=== PATIENT | female | born 1995 | race Caucasian/White ===

== ENCOUNTER 2024-04-03 19:54 | Emergency (ER) | payer BC, SELFPAY ==
[2024-04-03 20:00] VITALS: O2SAT 97
[2024-04-03 20:05] VITALS: BP 116/76; PULSE 120; RESP 16; TEMP 36.8; O2SAT 97; BMI 24.9
--- NOTE | 2024-04-03 20:08 | ED_ITS ---
HPI - Abdominal Pain General Time Seen by Provider: 20:08 Date Seen: 04/03/24 Chief Complaint: Abdominal Pain Stated Complaint: abdominal pain Time Seen by Provider: 04/03/24 20:05 Source: patient and RN notes reviewed Mode of arrival: ambulatory Limitations: no limitations History of Present Illness HPI narrative: This 28-year-old female is coming in with progressive right lower quadrant pain throughout the day today. She started having pain this morning. Is gotten worse throughout the day, ibuprofen would help but as soon as it would wear off she would start feeling significant pain even if she was resting. Walking, movement really worsen the pain. She normally would have a bowel movement daily, felt like she could go this morning despite her usual coffee. She has also tried heat. She is felt nausea which she thinks is because of the pain. She did try some soup about an hour ago. She is on oral contraceptives, started her menstrual cycle 2 days ago, this is the anticipated start for her being on oral contraceptives. She has never had any abdominal surgery. Notes no changes in urination. Her dad has had his appendix out, Mom has had an ovarian cyst, there is also family history of endometriosis. Related Data Home Medications ?Medication ?Instructions ?Recorded ?Confirmed norgestimate 0.25 mg-ethinyl 1 tab PO DAILY 04/03/24 04/03/24 estradiol 35 mcg tablet (Evie) sertraline 100 mg tablet 200 mg PO DAILY 04/03/24 04/03/24 Allergies Allergy/AdvReac Type Severity Reaction Status Date / Time latex AdvReac topical Verified 04/03/24 20:08 hives Review of Systems Status of ROS Reports: 6 or more systems reviewed and unremarkable except as noted in History and below [facility] Medical History (Updated 04/03/24 @ 22:08 by Nikky Gleason MD) No significant past medical history Surgical History No significant past surgical history Social History Smoking Status: Never smoker Second hand tobacco smoke exposure: No How often do you have a drink containing alcohol: never AUDIT-C Alcohol total score: 0 Non-prescribed substance use: denies use Exam Const: Vital Signs, click to edit/add: Vital Signs - 24 hr 04/03/24 20:04/03/24 20:17 Temperature 98.3 F 98.3 F Pulse Rate [Pulse Oximeter] 120 H Respiratory Rate 16 Blood Pressure [Ri ght Upper Arm] 116/76 Pulse Oximetry 97 Oxygen Delivery Me thod Room Air This 28-year-old female is alert, interactive, no apparent distress but looks like she is in pain. She is still very pleasant and able to speak in complete sentences. She is using her right hand to hang onto her right lower abdomen. Sclera clear, symmetrical facial function. Lungs clear anteriorly, no tachypnea. CV fast but regular, no murmur, normal S1-S2. Abdomen with distant but present bowel sounds, not significantly distended, she has some mild right upper quadrant pain which generalize is to her right lower quadrant and definite right lower quadrant pain with guarding, would not say there is rebound right now. Do not feel any organomegaly or masses. Documenting provider has reviewed patient's vital signs: yes Course Course ED Course: Reviewed with patient that I suspect appendicitis verses ovarian pathology in her situation. Will proceed with CT imaging with IV contrast. Will get appropriate labs. She is very unlikely to have any as she is on oral contraceptives and having normal menstrual cycle. Will give her Toradol and Zofran for symptom control. Reevaluation(s) Time of Reevaluation #1: 22:02 Reevaluation #1: Have reviewed with patient that there are no CT findings for her acute abdominal pain. She does have an incidental finding of an adrenal adenoma which will require follow-up, she was provided a copy of her CT. This certainly is not cause of her symptoms right now. We discussed bowel cramping that can sometimes mimic underlying processes. She certainly has nothing on CT or labs to direct us to any concerning findings. I have reviewed this with our general surgeon. A period of observation is indicated, will allow her to go home with Toradol from [facility], 20 tablets per instructions as well as the 10 tablets of Zofran from [facility]. Consultations Consultation #1: Reviewed with surgeon Dr. Townsend. She is going to look at the CT, look over the chart and will contact me back. From she agrees that there is no inflammatory change and no visualized appendicitis/inflammatory change. Will have her discharge to home for a period out patient observation. Back to the ER tomorrow for worsening otherwise recheck with her primary on Friday. Time: 21:31 Vital Signs Vital signs: Initial Vital Signs Temperature 98.3 F 04/03/24 20:05 Temperature Source Temporal Artery Scan 04/03/24 20:05 Pulse Rate 120 H 04/03/24 20:05 Respiratory Rate 16 04/03/24 20:05 Blood Pressure 116/76 04/03/24 20:05 Blood Pressure Mean 89 04/03/24 20:05 Blood Pressure Position Sitting 04/03/24 20:05 Pulse Oximetry 97 04/03/24 20:05 Oxygen Delivery Method Room Air 04/03/24 20:05 Vital Signs Temperature 98.3 F 04/03/24 20:05 Pulse Rate 120 H 04/03/24 20:05 Respiratory Rate 16 04/03/24 20:05 Blood Pressure 116/76 04/03/24 20:05 Pulse Oximetry 97 04/03/24 20:05 Oxygen Delivery Method Room Air 04/03/24 20:05 Temperature 98.3 F 04/03/24 20:17 Pulse Rate 120 H 04/03/24 20:05 Respiratory Rate 16 04/03/24 20:05 Blood Pressure 116/76 04/03/24 20:05 Pulse Oximetry 97 04/03/24 20:05 Oxygen Delivery Method Room Air 04/03/24 20:05 Medications Administered Medications: Discontinued Medications Generic Name Dose Route Start Last Admin Trade Name Fretramaine PRN Reason Stop Dose Admin Ketorolac Tromethamine 15 mg 04/03/24 20:13 04/03/24 20:17 Ketorolac 15 Mg/Ml Inj IVP 04/03/24 20:14 15 mg ONCE ONE Administration Ondansetron HCl 4 mg 04/03/24 20:13 04/03/24 20:17 Ondansetron 2 Mg/Ml Inj IVP 04/03/24 20:14 4 mg ONCE ONE Administration MDM - Abdominal Pain Lab Data Attestation: I reviewed the patient's lab results. Labs: Lab Results 04/03/24 04/03/24 Range/Units 08:05 20:12 WBC 9.06 (4.50-11.00) K/uL RBC 5.43 H (4.00-5.20) m/uL Hgb 16.4 H (12.0-16.0) gm/dL Hct 48.0 (33.0-51.0) % MCV 88 (80-100) fL MCH 30 (26-34) pg MCHC 34 (32-36) gm/dL RDW Coeff of Janice 12.5 (11.5-15.5) % Plt Count 243 (140-440) K/uL Neut % (Auto) 87.8 H (42.0-72.0) % Lymph % (Auto) 5.8 L (20-44) % [place] % (Auto) 4.3 (0.0-11.0) % Eos % (Auto) 1.9 (0.0-7.0) % Baso % (Auto) 0.1 (0.0-3.0) % Neut # (Auto) 8.00 H (1.7-7.0) K/uL Lymph # (Auto) 0.50 L (0.90-2.90) K/uL [place] # (Auto) 0.40 (0.00-0.90) K/UL Eos # (Auto) 0.17 (0.00-0.50) K/uL Baso # (Auto) 0.01 (0.00-0.30) K/uL Abs Immat Gran (auto) 0.01 (0.00-0.30) K/uL Imm/Tot Granulo (auto) 0.1 % Sodium 135 (135-149) mmol/L Potassium 4.3 (3.6-5.1) mmol/L Chloride 108 (96-114) mmol/L Carbon Dioxide 17 L (20-32) mmol/L Anion Gap 10 (7-15) mEq/L BUN 16 (5-24) mg/dL Creatinine 0.5 (0.5-1.5) mg/dL Estimated Creat Clear 147.23 Estimated GFR 133 ml/min Glucose 119 H (60-115) mg/dL Lactate 2.1 H (0.5-1.9) mmol/L Calcium 8.8 (8.4-10.6) mg/dL Total Bilirubin 1.3 (0.1-1.5) mg/dL AST 31 (12-35) U/L ALT 28 (4-35) U/L Alkaline Phosphatase 47 (40-150) U/L C-Reactive Protein 1.5 H (0.5-1.0) mg/dL Total Protein 7.4 (6.0-8.3) g/dL Albumin 4.2 (3.3-5.0) g/dL Urine Color Yellow (Yellow) Urine Appearance Clear (Clear) Urine pH 6.0 (5.0-8.5) Ur Specific [place] 1.025 (1.000-1.030) Urine Protein Negative (Negative) Urine Glucose (UA) Negative (Negative) Urine Ketones Negative (Negative) Urine Blood Negative (Negative) Urine Nitrite Negative (Negative) Urine Bilirubin Negative (Negative) Urine Urobilinogen 0.2 (0.2-1.0) Ur Leukocyte Esterase Negative (Negative) Urine RBC 0-2 (0-2) Urine WBC 0-2 (0-5) Ur Squamous Epith Cells Moderate A (None-Few) Urine Bacteria None (None) Imaging Data CT scan - abdomen: Attestation: I have reviewed the pertinent imaging results. Radiologist's impression: Patient: KATERINA NEGRO Facility:?[facility] Patient ID:?[id number] Site Patient ID:?[id number]. Site :?[id number] Study:?CT-Abdomen/Pelvis W ISOVUE 370-04/03/2024 8:46:36 PM Ordering Physician:?Victorino Sher Final Report: INDICATION: Right lower quadrant abdominal pelvic pain TECHNIQUE: CT Abdomen and pelvis with i.v. contrast. Coronal and sagittal reformats were obtained. CONTRAST: 71 mL Isovue 370 COMPARISON: None FINDINGS: Lower chest: Unremarkable. Liver: Unremarkable. Spleen: Unremarkable. Pancreas: Unremarkable. Gallbladder: Unremarkable. Kidney: Unremarkable. No kidney or ureteral stones or obstruction seen. Adrenal: An incidental left adrenal nodule is noted, measuring 2 cm. Bowel: The stomach, small bowel, and colon are unremarkable. The appendix cannot be identified but there are no inflammatory changes noted in the right lower quadrant. Vascular: Unremarkable. Lymph: Unremarkable. Peritoneum: Unremarkable. No pneumoperitoneum is seen. No significant ascites is noted. Pelvis: Unremarkable. Soft tissue: Unremarkable. Bone: Unremarkable for age. IMPRESSIONS: 1. An incidental left adrenal nodule is noted, measuring 2 cm. In accordance with ACR Guidelines, further characterization with outpatient Adrenal CT or MRI is recommended. 2. The appendix cannot be identified but there are no inflammatory changes noted in the right lower quadrant. Clinical follow-up is recommended. REFERENCE: 1. Jannet W, Rohan Martinez et al. Management of Incidental Adrenal Masses: A White Paper of the ACR Incidental Findings Committee. JACR.;1038-44. DOI:[email or web address]://doi.org/[email or web address]/j.[email or web address]. Dictated by Obey Bhakta MD @ 04/03/2024 9:05:55 PM Please note that all CT scans at this facility use dose modulation, iterative reconstruction, and/or weight-based dosing when appropriate to reduce radiation dose to as low as reasonably achievable. Dictated by: Obey Bhakta MD @ 04/03/2024 21:06:02 (Electronic Signature) Discharge Plan Discharge Clinical Impression: Abdominal pain, right lower quadrant Adrenal adenoma Qualifiers: Laterality: left Qualified Code(s): D35.02 - Benign neoplasm of left adrenal gland Patient Disposition: Home, Self-Care Condition: Stable Instructions: Abdominal Pain (ED) Additional Instructions: Can use Toradol and Zofran for symptoms. Can also do Tylenol 1000 mg 3 times a day. If your abdominal pain is worsening, develops vomiting or fever with it, have new concerns with it, return to the ER for re-evaluation. Otherwise should be rechecked on Friday in clinic with your primary care provider even if improved. You do need to have an adrenal adenoma CT or MRI done outpatient in the future to further characterize this. Please take the CT report to your primary care provider when you follow-up. Prescriptions: No Action norgestimate-ethinyl estradiol [Evie] 0.25-35 mg-mcg tablet 1 tab PO DAILY sertraline 100 mg tablet 200 mg PO DAILY Follow Up/Referrals: Felicia Agustin MD [Primary Care Provider] - Stand Alone Forms: InMobi Info Instructions
--- NOTE | 2024-04-03 20:13 | CRLHL7_ITS ---
For Patients: As a result of the Century Cures Act, medical imaging exams and procedure reports are released immediately into your electronic medical record. You may view this report before your referring provider. If you have questions, please contact your health care provider. INDICATION: Right lower quadrant abdominal pelvic pain TECHNIQUE: CT Abdomen and pelvis with i.v. contrast. Coronal and sagittal reformats were obtained. CONTRAST: 71 mL Isovue 370 COMPARISON: None FINDINGS: Lower chest: Unremarkable. Liver: Unremarkable. Spleen: Unremarkable. Pancreas: Unremarkable. Gallbladder: Unremarkable. Kidney: Unremarkable. No kidney or ureteral stones or obstruction seen. Adrenal: An incidental left adrenal nodule is noted, measuring 2 cm. Bowel: The stomach, small bowel, and colon are unremarkable. The appendix cannot be identified but there are no inflammatory changes noted in the right lower quadrant. Vascular: Unremarkable. Lymph: Unremarkable. Peritoneum: Unremarkable. No pneumoperitoneum is seen. No significant ascites is noted. Pelvis: Unremarkable. Soft tissue: Unremarkable. Bone: Unremarkable for age. IMPRESSIONS: 1. An incidental left adrenal nodule is noted, measuring 2 cm. In accordance with ACR Guidelines, further characterization with outpatient Adrenal CT or MRI is recommended. 2. The appendix cannot be identified but there are no inflammatory changes noted in the right lower quadrant. Clinical follow-up is recommended. REFERENCE: 1. Jannet W, Rohan J et al. Management of Incidental Adrenal Masses: A White Paper of the ACR Incidental Findings Committee. JACR.;1038-44. DOI:https://doi.org/[email or web address]/j.[email or web address]. Dictated by Obey Bhakta MD @ 04/03/2024 9:05:55 PM Please note that all CT scans at this facility use dose modulation, iterative reconstruction, and/or weight-based dosing when appropriate to reduce radiation dose to as low as reasonably achievable. Dictated by: Obey Bhakta MD @ 04/03/2024 21:06:02 (Electronically Signed)
[2024-04-03 20:14] LABS: Appearance Urine Clear (Clear); Bilirubin Urine Negative (Negative); Blood Urine Negative (Negative); Color Urine Yellow (Yellow); Glucose Urine Negative (Negative); Ketones Urine Negative (Negative); Leukocyte Esterase Urine Negative (Negative); Nitrite Urine Negative (Negative); Protein Urine Negative (Negative); Specific Gravity Urine 1.025 (1.000-1.030); Urobilinogen Urine 0.2 (0.2-1.0)
[2024-04-03 20:17] VITALS: TEMP 36.8
[2024-04-03 20:17] LABS: Lactate* 2.1 mmol/L (0.5-1.9)
[2024-04-03] MEDS: KETOROLAC 15 MG/ML inj IVP (20:17)
[2024-04-03] MEDS: ONDANSETRON 2 MG/ML inj 4 MG IVP (20:17)
[2024-04-03 20:22] LABS: Basophils Absolute Auto 0.01 K/uL (0.00-0.30); Basophils Percent Auto 0.1 % (0.0-3.0); Eosinophils Absolute Auto 0.17 K/uL (0.00-0.50); Eosinophils Percent Auto 1.9 % (0.0-7.0); Hemoglobin* 16.4 gm/dL (12.0-16.0); Immature Granulocytes Abs Auto 0.01 K/uL (0.00-0.30); Immature Granulocytes Pct Auto 0.1 %; Lymphocytes Percent Auto 5.8 % (20-44); Mean Corpuscular HGB Conc 34 gm/dL (32-36); Mean Corpuscular Hemoglobin 30 pg (26-34); Mean Corpuscular Volume 88 fL (80-100); Monocytes Percent Auto 4.3 % (0.0-11.0); Neutrophils Percent Auto 87.8 % (42.0-72.0); Platelet Count* 243 K/uL (140-440); RDW Coefficient of Variation % 12.5 % (11.5-15.5); Red Blood Count 5.43 m/uL (4.00-5.20); Slide Review Reflex No; White Blood Count* 9.06 K/uL (4.50-11.00)
[2024-04-03 20:23] LABS: RBC Urine 0-2 (0-2); Squamous Epithelial Cell Urine Moderate (None-Few); WBC Urine 0-2 (0-5)
[2024-04-03 20:33] LABS: Albumin* 4.2 g/dL (3.3-5.0); Chloride* 108 mmol/L (96-114)
[2024-04-03 20:34] LABS: Potassium* 4.3 mmol/L (3.6-5.1); Sodium* 135 mmol/L (135-149)
[2024-04-03 20:36] LABS: Alkaline Phosphatase* 47 U/L (40-150); Anion Gap 10 mEq/L (7-15); Aspartate Amino Transferase* 31 U/L (12-35); Bilirubin Total* 1.3 mg/dL (0.1-1.5); Carbon Dioxide* 17 mmol/L (20-32); Creatinine* 0.5 mg/dL (0.5-1.5); Est. Creatinine Clearance* 147.23; Estimated Glomerular Filt Rate 133 ml/min; Total Protein* 7.4 g/dL (6.0-8.3)
[2024-04-03 20:37] LABS: Alanine Aminotransferase* 28 U/L (4-35); Blood Urea Nitrogen* 16 mg/dL (5-24); Calcium* 8.8 mg/dL (8.4-10.6); Glucose* 119 mg/dL (60-115)
[2024-04-03 20:39] LABS: C Reactive Protein* 1.5 mg/dL (0.5-1.0)
[2024-04-03 22:24] VITALS: BP 121/77; PULSE 95; RESP 16; TEMP 36.8; O2SAT 97
[2024-04-03 22:29] VITALS: BP 121/77; PULSE 95; RESP 16; TEMP 36.8
== END 2024-04-03 22:30 | disposition home or self-care (01) ==
PROVIDERS: Emergency Provider Family Medicine; PCP Pediatrics
DX: R10.31 Right lower quadrant pain (principal); D35.02 Benign neoplasm of left adrenal gland
CPT/HCPCS: 36415; 74177; 80053; 81001; 83605; 85025; 86140; 94761; 96374; 96375; 99284; 99285; J1885; J2405; Q9967

== ENCOUNTER 2024-04-04 12:42 | Emergency (ER) | payer BC, SELFPAY ==
[2024-04-04 12:50] VITALS: BP 130/83; PULSE 107; RESP 16; TEMP 36.6; O2SAT 98; BMI 24.9
--- NOTE | 2024-04-04 13:16 | ED.ABDPAIN ---
HPI - Abdominal Pain General Date Seen: 04/04/24 Chief Complaint: Abdominal Pain Stated Complaint: Abdominal pain Time Seen by Provider: 04/04/24 12:49 History of Present Illness HPI narrative: 28-year-old female presenting to the ER today for abdominal pain affecting her lower right quadrant. She is currently on day 3 of her menstrual cycle. She is generally healthy. No previous abdominal surgeries. She started having her period a couple of days ago and it was normal, on time and normal amount of the blood flow. Yesterday she started having pain located low in her right lower quadrant. The pain became intense in waves and made her nauseous. She had a couple of episodes of dry heaves. She came into the ER yesterday was seen. Workup was normal but inconclusive. Labs 04/03/2020 WBC 9.06, hemoglobin 16.4, platelet count 243 Sodium 135, potassium 4.3, chloride 1 awake, bicarb 17, BUN 16, creatinine 0.5, glucose 119, AST 31, ALT 28, alk-phos 47, total bilirubin 1.3 CRP 1.5 Venous lactic 2.1 Urinalysis negative protein, negative nitrite, negative leukocyte esterase, 0-[address] abd pelvis IMPRESSIONS: 1. An incidental left adrenal nodule is noted, measuring 2 cm. In accordance with ACR Guidelines, further characterization with outpatient Adrenal CT or MRI is recommended. 2. The appendix cannot be identified but there are no inflammatory changes noted in the right lower quadrant. Clinical follow-up is recommended. She was discharged home from the ER with return precautions. Last night she had more pain and other episode of nausea the other lead led to vomiting. This time her emesis was greenish. No bloody emesis. No diarrhea. Pain has been persistent throughout the night it comes and goes in waves. When she takes Toradol gets slightly better but she still having waves or he she gets intense pain. The pain is now also spreading and affecting more the right side of her abdomen, not just the right lower quadrant. She does not have a fever. Pain does not really change based on position but it sounds like it does hurt more when she moves. She still having vaginal bleeding but her menstrual cycle is slackenning, as her periods normally do by the 3rd day. Related Data Home Medications ?Medication ?Instructions ?Recorded ?Confirmed norgestimate 0.25 mg-ethinyl 1 tab PO DAILY 04/03/24 04/03/24 estradiol 35 mcg tablet (Evie) sertraline 100 mg tablet 200 mg PO DAILY 04/03/24 04/03/24 Allergies Allergy/AdvReac Type Severity Reaction Status Date / Time latex AdvReac topical Verified 04/03/24 20:08 hives [facility] Medical History (Updated 04/04/24 @ 16:42 by Rambo Saldaña MD) No significant past medical history Surgical History No significant past surgical history Social History Smoking Status: Never smoker Do you use any of these nicotine containing products: None Second hand tobacco smoke exposure: No How often do you have a drink containing alcohol: never AUDIT-C Alcohol total score: 0 Non-prescribed substance use: denies use service: No Exam Const: Vital Signs, click to edit/add: Vital Signs - 24 hr 04/04/24 12:50 04/04/24 14:50 Temperature 97.8 F Pulse Rate [Right Radial] 107 H 90 Respiratory Rate 16 16 Blood Pressure [Ri ght Upper Arm] 130/83 119/70 Pulse Oximetry 98 98 Oxygen Delivery Me thod Room Air Room Air Course Course ED Course: Recheck-says her pain is much better after the Dilaudid. She is much more comfortable. Smiling. Alert, nontoxic. Repeat exam still reveals tenderness now predominantly in the right lower quadrant. No Rovsing sign. No psoas sign. No definite peritoneal signs. Exam is much improved and much less tender after Dilaudid. Reevaluation(s) Reevaluation #1: Recheck-pelvic ultrasound report shows normal uterus and ovaries. No clear explanation for pain. There are some nonspecific dilated loops of bowel noted by ultrasound. White count normal, actually down from 9 to 5. Vital Signs Vital signs: Initial Vital Signs Temperature 97.8 F 04/04/24 12:50 Temperature Source Temporal Artery Scan 04/04/24 12:50 Pulse Rate 107 H 04/04/24 12:50 Respiratory Rate 16 04/04/24 12:50 Blood Pressure 130/83 04/04/24 12:50 Blood Pressure Mean 98 04/04/24 12:50 Pulse Oximetry 98 04/04/24 12:50 Oxygen Delivery Method Room Air 04/04/24 12:50 Vital Signs Temperature 97.8 F 04/04/24 12:50 Pulse Rate 107 H 04/04/24 12:50 Respiratory Rate 16 04/04/24 12:50 Blood Pressure 130/83 04/04/24 12:50 Pulse Oximetry 98 04/04/24 12:50 Oxygen Delivery Method Room Air 04/04/24 12:50 Temperature 97.8 F 04/04/24 12:50 Pulse Rate 90 04/04/24 14:50 Respiratory Rate 16 04/04/24 14:50 Blood Pressure 119/70 04/04/24 14:50 Pulse Oximetry 98 04/04/24 14:50 Oxygen Delivery Method Room Air 04/04/24 14:50 Medications Administered Medications: Generic Name Dose Route Start Last Admin Trade Name Freq PRN Reason Stop Dose Admin Hydromorphone HCl 0.5 mg 04/04/24 13:16 04/04/24 13:35 Hydromorphone 0.5 Mg/0.5 Ml Inj IVP 0.5 mg Q1H PRN Administration Pain Discontinued Medications Generic Name Dose Route Start Last Admin Trade Name Freq PRN Reason Stop Dose Admin Ondansetron HCl 4 mg 04/04/24 13:16 04/04/24 13:34 Ondansetron 2 Mg/Ml Inj IVP 04/04/24 13:17 4 mg ONCE ONE Administration MDM - Abdominal Pain MDM Narrative Medical decision making narrative: Very pleasant 28-year-old female returning to the ER today for abdominal pain. Pain is primary no lower right quadrant but also spreading more diffusely in her abdomen and associated with nausea and vomiting. No fever. She had been here in the ER workup yesterday with a negative but nondiagnostic workup. Specifically CT having pelvis is obtained and did not identify an appendix. With worsening symptoms she came back to the ER today. Initial concern was for possible gynecologic pathology causing her pain given negative workup so far. Urinalysis was obtained and is normal. test negative. Pelvic ultrasound shows no evidence for ovarian cyst, torsion, free pelvic fluid. Laboratory workup today showed improvement her white count down from 9 to 5. She did have significant pain improvement with IV Dilaudid here in the ER but was still uncomfortable and tender in the right lower quadrant. I had a detailed discussion with the patient as well as her family about possible further workup including repeat CT. We discussed the risk of radiation. Ultimately with sided to go ahead with repeat CT. On today's CT scan appendix is visualized and looks normal. No evidence for appendicitis. Also no evidence for diverticulitis, colitis, bowel obstruction. No free fluid. No free air. No perforation or abscess. There is note of a large stool ball in her rectum, possible constipation on the CT. Discussed workup so far with the patient and her family. They were reassured but understandably a little bit frustrated about the absence of a specific diagnosis. At this point no immediate surgical or medical condition requiring hospitalization. Will pursue a plan for watchful waiting at home with follow-up in 24-36 hours if not improving. Return to the ER immediately if worse. [place] and Zofran Instymeds prescriptions provided. Opiate precautions reviewed. Incidentally she has a 2 cm left adrenal lesion which needs outpatient follow-up. Lab Data Labs: Lab Results 04/04/24 04/04/24 Range/Units 13:39 13:40 WBC 5.71 (4.50-11.00) K/uL RBC 5.19 (4.00-5.20) m/uL Hgb 15.7 (12.0-16.0) gm/dL Hct 46.4 (33.0-51.0) % MCV 89 (80-100) fL MCH 30 (26-34) pg MCHC 34 (32-36) gm/dL RDW Coeff of Janice 12.7 (11.5-15.5) % Plt Count 230 (140-440) K/uL Neut % (Auto) 79.0 H (42.0-72.0) % Lymph % (Auto) 11.6 L (20-44) % Wheeler % (Auto) 6.1 (0.0-11.0) % Eos % (Auto) 3.3 (0.0-7.0) % Baso % (Auto) 0.0 (0.0-3.0) % Neut # (Auto) 4.50 (1.7-7.0) K/uL Lymph # (Auto) 0.70 L (0.90-2.90) K/uL Wheeler # (Auto) 0.30 (0.00-0.90) K/UL Eos # (Auto) 0.19 (0.00-0.50) K/uL Baso # (Auto) 0.00 (0.00-0.30) K/uL Abs Immat Gran (auto) 0.00 (0.00-0.30) K/uL Imm/Tot Granulo (auto) 0.0 % Sodium 135 (135-149) mmol/L Potassium 3.7 (3.6-5.1) mmol/L Chloride 107 (96-114) mmol/L Carbon Dioxide 21 (20-32) mmol/L Anion Gap 7 (7-15) mEq/L BUN 15 (5-24) mg/dL Creatinine 0.6 (0.5-1.5) mg/dL Estimated Creat Clear 122.70 Estimated GFR 127 ml/min Glucose 95 (60-115) mg/dL Calcium 8.4 (8.4-10.6) mg/dL Total Bilirubin 0.6 (0.1-1.5) mg/dL AST 31 (12-35) U/L ALT 32 (4-35) U/L Alkaline Phosphatase 52 (40-150) U/L Total Protein 6.5 (6.0-8.3) g/dL Albumin 3.7 (3.3-5.0) g/dL Lipase 30 (23-300) U/L HCG, Qual Negative (Negative) Urine Color Yellow (Yellow) Urine Appearance Clear (Clear) Urine pH 6.0 (5.0-8.5) Ur Specific [place] 1.025 (1.000-1.030) Urine Protein Negative (Negative) Urine Glucose (UA) Negative (Negative) Urine Ketones 1+ A (Negative) Urine Blood Negative (Negative) Urine Nitrite Negative (Negative) Urine Bilirubin Negative (Negative) Urine Urobilinogen 0.2 (0.2-1.0) Ur Leukocyte Esterase Negative (Negative) Urine RBC 0-2 (0-2) Urine WBC 0-2 (0-5) Ur Squamous Epith Cells Moderate A (None-Few) Urine Bacteria Few A (None) Imaging Data US pelvis: Attestation: I have reviewed the pertinent imaging results. Radiologist's impression: FINDINGS: Uterus: 7.2 x 3.1 x 4.6 cm. Normal echotexture of the myometrium. No masses. Endometrium: Transvaginal imaging was performed to better evaluate the endometrium. Endometrial thickness measures 1 mm. Trace fluid and blood products in the endometrial canal. Right ovary 4 x 2.4 x 3 centimeters. Left ovary 2.1 x 1.2 x 1.5 centimeters. No ovarian or adnexal masses. Right ovarian cyst measuring 3.1 x 1.9 x 2.6 centimeters which is within physiologic range. Normal arterial and venous blood flow is demonstrated in both ovaries. Cul-de-sac: No significant free fluid. Mildly prominent, but not definitely dilated bowel loops in the pelvis. IMPRESSION: Uterus with trace fluid and blood products within the endometrial canal, which may be physiologic. Normal endometrial thickness. Normal ovaries. CT scan - abdomen: Attestation: I have reviewed the pertinent imaging results. Radiologist's impression: IMPRESSION: Significant stool in the rectum, consistent with constipation. Redemonstration of the 2 centimeter nodule in the left upper quadrant, which may represent an intermediate density adrenal nodule versus splenule. Again, further characterization with adrenal protocol CT or MR can be considered Discharge Plan Discharge Clinical Impression: Abdominal pain, right lower quadrant Adrenal adenoma Qualifiers: Laterality: left Qualified Code(s): D35.02 - Benign neoplasm of left adrenal gland Patient Disposition: Home, Self-Care Condition: Stable Instructions: Abdominal Pain (ED) Additional Instructions: As we discussed, use the pain and nausea medications as needed to help treat your symptoms. Be careful with [place] because it can cause dizziness, drowsiness, constipation, and can be addictive. [place] is an opiate. Please return to the ER right away if you have worsening or uncontrolled pain, new symptoms such as fever, bloody vomiting or stool, or any problems. If you are not substantially improved within 24-36 hours, please recheck with your doctor or come back to the ER for a recheck. Even if you get better, please arrange a recheck appointment with her doctor within the next 1-2 weeks so that they can arrange a MRI scan for your left adrenal gland. Prescriptions: No Action norgestimate-ethinyl estradiol [Evie] 0.25-35 mg-mcg tablet 1 tab PO DAILY sertraline 100 mg tablet 200 mg PO DAILY Follow Up/Referrals: Felicia Agustin MD [Staff Physician] - Stand Alone Forms: [employer] Info Instructions
--- NOTE | 2024-04-04 13:26 | CRLHL7_ITS ---
For Patients: As a result of the Century Cures Act, medical imaging exams and procedure reports are released immediately into your electronic medical record. You may view this report before your referring provider. If you have questions, please contact your health care provider. INDICATION: Right lower quadrant and pelvic pain TECHNIQUE: Ultrasound pelvis transabdominal and transvaginal for better assessment or to better visualize the endometrium. Real-time sonographic images with spectral and color Doppler imaging of the ovaries were obtained. COMPARISON: CT abdomen and pelvis 04/03/2024 FINDINGS: Uterus: 7.2 x 3.1 x 4.6 cm. Normal echotexture of the myometrium. No masses. Endometrium: Transvaginal imaging was performed to better evaluate the endometrium. Endometrial thickness measures 1 mm. Trace fluid and blood products in the endometrial canal. Right ovary 4 x 2.4 x 3 centimeters. Left ovary 2.1 x 1.2 x 1.5 centimeters. No ovarian or adnexal masses. Right ovarian cyst measuring 3.1 x 1.9 x 2.6 centimeters which is within physiologic range. Normal arterial and venous blood flow is demonstrated in both ovaries. Cul-de-sac: No significant free fluid. Mildly prominent, but not definitely dilated bowel loops in the pelvis. IMPRESSION: Uterus with trace fluid and blood products within the endometrial canal, which may be physiologic. Normal endometrial thickness. Normal ovaries. Dictated by Natalie Fajardo MD @ 04/04/2024 2:48:12 PM (Electronically Signed)
[2024-04-04] MEDS: ONDANSETRON 2 MG/ML inj 4 MG IVP (13:34)
[2024-04-04] MEDS: HYDROmorphone 0.5 mg/0.5 ml inj IVP (13:35)
[2024-04-04 13:45] LABS: Eosinophils Absolute Auto 0.19 K/uL (0.00-0.50); Eosinophils Percent Auto 3.3 % (0.0-7.0); Hematocrit 46.4 % (33.0-51.0); Hemoglobin* 15.7 gm/dL (12.0-16.0); Lymphocytes Percent Auto 11.6 % (20-44); Mean Corpuscular HGB Conc 34 gm/dL (32-36); Mean Corpuscular Hemoglobin 30 pg (26-34); Mean Corpuscular Volume 89 fL (80-100); Monocytes Percent Auto 6.1 % (0.0-11.0); Platelet Count* 230 K/uL (140-440); RDW Coefficient of Variation % 12.7 % (11.5-15.5); Red Blood Count 5.19 m/uL (4.00-5.20); White Blood Count* 5.71 K/uL (4.50-11.00)
[2024-04-04 13:46] LABS: Appearance Urine Clear (Clear); Bilirubin Urine Negative (Negative); Blood Urine Negative (Negative); Color Urine Yellow (Yellow); Glucose Urine Negative (Negative); Ketones Urine 1+ (Negative); Leukocyte Esterase Urine Negative (Negative); Nitrite Urine Negative (Negative); Protein Urine Negative (Negative); Specific Gravity Urine 1.025 (1.000-1.030); Urobilinogen Urine 0.2 (0.2-1.0)
[2024-04-04 14:04] LABS: Albumin* 3.7 g/dL (3.3-5.0); Chloride* 107 mmol/L (96-114)
[2024-04-04 14:05] LABS: Potassium* 3.7 mmol/L (3.6-5.1); Sodium* 135 mmol/L (135-149)
[2024-04-04 14:07] LABS: Anion Gap 7 mEq/L (7-15); Aspartate Amino Transferase* 31 U/L (12-35); Bilirubin Total* 0.6 mg/dL (0.1-1.5); Blood Urea Nitrogen* 15 mg/dL (5-24); Carbon Dioxide* 21 mmol/L (20-32); Creatinine* 0.6 mg/dL (0.5-1.5); Estimated Glomerular Filt Rate 127 ml/min; Total Protein* 6.5 g/dL (6.0-8.3)
[2024-04-04 14:08] LABS: Alanine Aminotransferase* 32 U/L (4-35); Alkaline Phosphatase* 52 U/L (40-150); Calcium* 8.4 mg/dL (8.4-10.6); Glucose* 95 mg/dL (60-115); Lipase* 30 U/L (23-300)
[2024-04-04 14:28] LABS: Slide Review Reflex No
[2024-04-04 14:29] LABS: Bacteria Urine Few; RBC Urine 0-2 (0-2); Squamous Epithelial Cell Urine Moderate (None-Few); WBC Urine 0-2 (0-5)
[2024-04-04 14:50] VITALS: BP 119/70; PULSE 90; RESP 16; O2SAT 98
--- NOTE | 2024-04-04 15:02 | CRLHL7_ITS ---
For Patients: As a result of the Century Cures Act, medical imaging exams and procedure reports are released immediately into your electronic medical record. You may view this report before your referring provider. If you have questions, please contact your health care provider. INDICATION: Right lower quadrant pain, vomiting. TECHNIQUE: CT abdomen and pelvis without contrast. COMPARISON: CT abdomen pelvis 04/03/2024, same-day pelvic ultrasound. FINDINGS: Lower chest: Unremarkable. Liver: Unremarkable. Gallbladder and bile ducts: Vicarious excretion of contrast in the gallbladder. No biliary ductal dilation. Pancreas: Unremarkable. Spleen: Unremarkable. Adrenal glands: The previously noted 2 centimeter left adrenal nodule is intermediate in density (2/31), but is similar in density when compared to the spleen and may represent a splenule. Kidneys: Unremarkable. GI tract: No obstruction or evidence bowel wall inflammation. Significant stool in the rectum with rectal stool ball measuring 6 centimeters. Normal appendix. Vasculature: Abdominal aorta is normal in caliber. Lymph nodes: No lymphadenopathy. Peritoneum/Abdominal Wall: Unremarkable. Pelvis: Unremarkable. No pelvic masses. Bones: Unremarkable for age. IMPRESSION: Significant stool in the rectum, consistent with constipation. Redemonstration of the 2 centimeter nodule in the left upper quadrant, which may represent an intermediate density adrenal nodule versus splenule. Again, further characterization with adrenal protocol CT or MR can be considered. Please note that all CT scans at this facility use dose modulation, iterative reconstruction, and/or weight-based dosing when appropriate to reduce radiation dose to as low as reasonably achievable. Dictated by Natalie Fajardo MD @ 04/04/2024 4:18:01 PM (Electronically Signed)
[2024-04-04 15:05] LABS: HCG Qualitative Serum* Negative (Negative)
== END 2024-04-04 16:54 | disposition home or self-care (01) ==
PROVIDERS: Emergency Provider Emergency Medicine
DX: D35.02 Benign neoplasm of left adrenal gland (principal)
CPT/HCPCS: 36415; 74176; 76830; 80053; 81001; 83690; 84703; 85025; 87086; 93976; 96374; 96375; 99283; 99284; J1171; J2405

== ENCOUNTER 2024-10-09 20:01 | Emergency (ER) | payer OTHER, BC, SELFPAY ==
--- OUTSIDE RECORDS SUMMARY | 2024-10-09 20:02 | XMS_ITS | Encounter Summary ---
Author Organization [facility] Address [address] [place] [id number] Care Team Providers Care Sales Management Intern Name Role Phone Leo Joyce MD Unavailable [phone] Giuliano Rajan APRN TITLE I ASSISTANT Unavailable [phone] [facility] Primary Care Provider Hans Davila MD Unavailable Servando Brandt DO Unavailable [phone] Jarek Landin OD Unavailable [phone] Reason for Visit * Reason Onset Date Comments Refill Request 04/08/2024 Encounter Details Date Type Department Care Team (Late st Contact Info) Description 04/08/[address] 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 Mental Health & Addiction [address] [phone] Sharmaine Fiore NP [address] [address] documented as of this encounter Visit Diagnoses Not on filedocumented in this encounter Additional Health Concerns Assessment Noted Time PHQ-9 Depression Total Score: 14 023 12:03 PM CDT documented as of this encounter Care Teams Sales Management Intern Relationship Specialty Start Date End Date Leo Joyce MD PCP - Ophthalmology 09/08/06 [facility] Hinton MD [address] [place] [id number] PCP - General 07/09/17 Giuliano Rajan APRN TITLE I ASSISTANT Nurse Practitioner Nurse Practitioner 04/01/17 Hans Davila MD [address] [place] [address] Assigned OBGYN Provider 03/12/20 Servando Brandt DO [address] [place] [address] Assigned PCP 08/22/21 Jarek Landin OD [address] [place] [address] Assigned Surgical Provider 07/04/23 documented as of this encounter
--- OUTSIDE RECORDS SUMMARY | 2024-10-09 20:02 | XMS_ITS | Clinical Summary ---
Author Organization [facility] Address [address] [place] [address] Care Team Providers Care Tattoo Artist Name Role Phone Leo Joyce MD Unavailable [phone] Giuliano Rajan APRN DISTILLATION OPERATOR Unavailable [phone] [facility] Primary Care Provider Hans Davila MD Unavailable Servando Brandt DO Unavailable [phone] Jarek Landin OD Unavailable [phone] Allergies Active Allergy Reactions Criticality Noted Date Comments Bacitracin 09/05/2006 Topical bacitracin give rash per mother Dogs 08/21/2009 Latex 08/21/2009 Latex Rash Low 08/25/2012 Maple Tree 08/21/2009 Molds & Smuts 06/25/2007 Medications ASTELIN NA one spray twice daily 03/19/20 07 Active ZYRTEC OR Take by mouth daily as needed Active olopatadine (PATANOL) 0.1 % ophthalmic solutionIndication s:Allergic conjunctivitis Place 1 drop into both eyes 2 times daily. 10 mL 3 11/12/19 12 Active Additional Information Patient not taking.Reported on 07/27/2024 sodium chloride 0.9%, bottle, 0.9 % irrigation IRRIGATE 20ML BY NASAL ROUTE (BOTH NOSTRILS) 4 TIMES PER DAY 07/16/19 23 Active rizatriptan (MAXALT-AUTOMOBILE RENTAL REPRESENTATIVE) 5 MG ODTIndications:Gary foley without aura and without status migrainosus, not intractable Take 1-2 tablets (5-10 mg) by mouth at onset of headache for migraine (may repeat in 2 hours as needed. Max 30 mg in 24 hours) 18 tablet 6 07/23/19 23 Active Additional Information Patient not taking.Reported on 07/27/2024 ondansetron (ZOFRAN ODT) 4 MG ODT tabIndications:Gary foley without aura and without status migrainosus, not intractable Take 1 tablet (4 mg) by mouth every 8 hours as needed for nausea 20 tablet 3 07/23/19 23 Active Additional Information Patient not taking.Reported on 07/27/2024 norgestimate-ethin yl estradiol (MARIO) 0.25-35 MG-MCG tabletIndications: Breakthrough bleeding on OCPs Take 1 tablet by mouth daily 84 tablet 3 09/09/19 24 Active gabapentin (NEURONTIN) 300 MG capsuleIndications :RODRICK (generalized anxiety disorder) Take 1 capsule (300 mg) by mouth nightly as needed (anxiety) 90 capsule 1 09/16/19 24 Active sertraline (ZOLOFT) 100 MG tabletIndications: RODRICK (generalized anxiety disorder) TAKE TWO TABLETS (200mg) BY MOUTH EVERY DAY 180 tablet 1 09/16/19 24 Active sertraline (ZOLOFT) 100 MG tabletIndications: RODRICK (generalized anxiety disorder) TAKE 2 TABLETS BY MOUTH ONCE DAILY 180 tablet 1 04/09/20 24 Active norgestimate-ethin yl estradiol (MARIO) 0.25-35 MG-MCG tabletIndications: Encounter for gynecological examination without abnormal finding Take 1 tablet by mouth daily. 84 tablet 3 07/28/19 25 Active gabapentin (NEURONTIN) 300 MG capsuleIndications :RODRICK (generalized anxiety disorder) Take 1 capsule (300 mg) by mouth 2 times daily. 90 capsule 3 07/28/19 25 Active sertraline (ZOLOFT) 100 MG tabletIndications: RODRICK (generalized anxiety disorder) Take 2 tablets (200 mg) by mouth daily. 180 tablet 1 07/28/19 25 Active Active Problems Problem Noted Date Diagnosed Date Performance anxiety 07/24/2017 RODRICK (generalized anxiety disorder) 07/24/2017 Major depressive disorder with single episode 07/22/2022 Overview (07/22/2022): Major depressive disorder, single episode, unspecified Recurrent sinus infections 04/05/201307/22 Encounters Date Type Department Care Team Description 10/05/2024 MyC Medical Advice [facility] [address] [facility] [address] [place] [address] Hans Davila MD 08/17/2024 Telephone [facility] [place] [id number] [place] [phone] Linda Humphrey MD Appointment (Sooner appointment ) 07/27/2024 1:30 PM CDT Office Visit [facility] [address] [facility] [address] [place] [address] Hans Davila MD Encounter for gynecological examination without abnormal finding; RODRICK (generalized anxiety disorder) 07/27/2024 Travel 07/26/2024 Travel from Last 3 Months Immunizations Immunization Administration Dates Next Due COVID-19 MONOVALENT 12+ (Pfizer) 08/10/2020,0404/2020 DTAP (<7y) 05/28/2002, 9,1997,08/12,1997 [id number] Novel Flu 03/21/2009 HIB (PRP-T) 07/12/1998, 8,1997,06/17 HIB(PRP-OMP)(PedvaxHIB) 1997,1997, HPV Quadrivalent 02/14/2010,10/30/2009, 0 HepB, Unspecified 1997,1997 Hepatitis A (Vaqta/Havrix)(P eds 12m-18y) 12/31/2006,06/23/2006 Hepatitis B, Peds (Engerix-B/Recombivax HB) 1997 Influenza (IIV3) PF 12/21/2010 Influenza Vaccine >6 months,quad, PF ,03/10/2020,01/25/2019,12/26,02/10/2017 MMR (MMRII) 05/28/2002,07/12/1998 Meningococcal ACWY (Menactra ) 08/08/2009 Meningococcal ACWY (Menveo ) 11/04/2014 OPV, trivalent, live 07/12/1998 Poliovirus, inactivated (IPV) 05/28/2002 ,07/12/1998,1997,08/12,1997 Rabies Vaccine 11/20/2007, 8,10/28/2007,10/23,10/21/2007 Rabies-Intradermal 10/28/2007,10/21/2007 TDAP Vaccine (Adacel) 10/07/2017,10/21/2007,08/2006 Varicella (Varivax) 10/21/2007,01/12/1999 Family History Medical History Relation Comments Endometriosis Maternal Aunt Cardiovascular Maternal Grandfather HTN Eye Disorder Maternal Grandfather mac degen Cardiovascular Maternal Grandmother HTN Eye Disorder Maternal Grandmother mac degen Glaucoma Maternal Grandmother Macular Degeneration Maternal Grandmother Family History Negative Mother Cardiovascular Paternal Grandfather heart Relation Status Comments Father Alive Maternal Aunt Maternal Grandfather Alive Maternal Grandmother Other Mother Alive Paternal Grandfather Paternal Grandmother Alive Social History Tobacco Use Types Packs/Day Years Used Date Smoking Tobacco: Never Smokeless Tobacco: Never Tobacco Cessation:Counseling Given: Not Answered Alcohol Use Standard Drinks/Week Comments Yes 0 (1 standard drink = 0.6 oz pur e alcohol) one glass a week PHQ-2 Answer Date Recorded PHQ-2 Score 3 07/27/2024 Adolescent Education Answer Date Record ed Getting School Help Needed Not on file 01/10 Comments No Sex and Gender Information Value Date Recorded Sex Assigned at Female 02/15/2021 10:05 AM CDT Legal Sex Female 4:22 AM SAFETY TRAINER Gender Identity Female 02/15/2021 10:05 AM CDT Sexual Orientation Straight 02/15/2021 10 :05 AM CDT Last Filed Vital Signs Vital Sign Reading Time Taken Comments Blood Pressure 124/60 07/27/2024 1:14 PM CDT Pulse 82 07/22/2022 1:33 PM CDT Temperature 36.7 C (98 F) 12/23/2008 6:56 PM CDT Respiratory Rate 16 07/22/2022 1:33 PM CDT Oxygen Saturation 96% 07/22/2022 1:33 PM CDT Inhaled Oxygen Concentration - - Weight 65.3 kg (144 lb) 07/27/2024 1:14 PM CDT Height 162.6 cm (5' 4) 07/27/2024 1:14 PM CDT Body Mass Index 24.72 07/27/2024 1:14 PM CDT Plan of Treatment Upcoming Encounters Date Type Department Care Team (Late st Contact Info) Description 10/19/2024 3:30 PM CDT Virtual Visit [address] [phone] Hans Davila MD [address] [place] [address] [place] Humph[place] [id number] [place] [address] 11/04/2024 3:00 PM CDT Office Visit [facility] Mental Health & Addiction [address] [phone] Sharmaine Fiore NP [address] [address] Health Maintenance Due Date Last Done Comments ADVANCE CARE PLANNING 1997 ANNUAL REVIEW OF HM ORDERS 1997 DEPRESSION ACTION PLAN 1997 HIV SCREENING 2012 HEPATITIS C SCREENING 2015 COVID-19 VACCINE ( season) 2023 02/25/2022, 04/02/2021, 08/10/2020, Additional history exists INFLUENZA VACCINE (Season Ended) 2024 02/25/2022, 02/01/2021, 03/10/2020, Additional history exists PHQ-9 01/26/2025 07/27/2024, 08/19, 07/26/2021, Additional history exists YEARLY PREVENTIVE VISIT 07/27/2025 07/28/19, 09/09/2023, 08/28/2022, Additional history exists PAP 09/08/2026 09/09/2023, 03/10/2020 DTAP/TDAP/TD VACCINE (8 - Td or Tdap) 10/08/2027 10/07/2017, 10/21/2007, 06/23/2006, Additional history exists ZOSTER VACCINE (1 of 2) 2047 HEPATITIS B VACCINE Completed 1997, 1997, 1997 HPV VACCINE Completed 02/14/2010, 10/19, 08/08/2009 MENINGITIS VACCINE Completed 11/04/2014, 08/08/2009 CHLAMYDIA SCREENING Discontinued 08/28/2021, PNEUMOCOCCAL VACCINE: PEDIATRICS (0 to 5 YEARS) AND AT-RISK PATIENTS (6 to 49 YEARS) Aged Out No longer eligible based on patient's age to complete this topic Procedures Procedure Name Priority Date/Time Associated Diagnosis Comments GYNECOLOGIC CYTOLOGY Routine 09/09/2023 3:22 PM CDT Screening for malignant neoplasm of cervix CHLAMYDIA TRACHOMATIS PCR Routine 08/28/2021 2:00 PM CDT Encounter for gynecological examination without abnormal finding from Last 3 Months or Most Recently Relevant to Health Maintenance Results * Pap Screen Reflex to HPV if ASCUS - Recommended Age 25 - 29 Years (09/09/2023 3:22 PM CDT) Interpretation Negative for Intraepithelial Lesion or Malignancy (NILM) 09/12/2023 11:08 AM CDT [facility] at 1108 CDT Comment Papanicolaou Test Limitations: Cervical cytology is a screening test with limited sensitivity, and regular screening is critical for cancer prevention. Pap tests are primarily effective for the diagnosis/prevent ion of squamous cell carcinoma, not adenocarcinoma or other cancers. 09/12/2023 11:08 AM CDT [facility] Specimen Adequacy Satisfactory for evaluation, endocervical/corley sformation zone component present 09/12/2023 11:08 AM CDT [facility] Clinical Information none 09/12/2023 11:08 AM CDT [facility] LMP/Menopause Date 08/13/2023 09/12/2023 11:08 AM CDT [facility] Reflex Testing Yes if ASCUS 09/12/19 11:08 AM CDT [facility] Previous Abnormal? No 09/12/2023 11:08 AM CDT [facility] Performing Labs The technical component of this testing was completed at [facility]. Stain controls for all stains resulted within this report have been reviewed and show appropriate reactivity. 09/12/2023 11:08 AM CDT [facility] Brushing ENDOCERVICAL STRUCTURE / Unknown Non-blood Collection / Unknown 09/09/2023 3:22 PM CDT 09/09/2023 4:00 PM CDT Hans Davila MD LAB - BEAKER AP Final Result [facility] Specialty Lab [address] [facility] [place] [address], [facility] * CHLAMYDIA TRACHOMATIS PCR (08/28/2021 2:00 PM CDT) Chlamydia trachomatis Negative Negative 08/29/2021 1:39 PM CDT [facility] Comment:A negative result by outside sales representative mediated amplification does not preclude the presence of C. trachomatis infection because results are dependent on proper and adequate collection, absence of inhibitors and sufficient rRNA to be detected. Swab CERVIX UTERI STRUCTURE / Unknown Non-blood Collection / Unknown 08/28/2021 2:00 PM CDT 08/28/2021 2:15 PM CDT Hans Davila MD LAB - MICRO GENERAL OR DERABLES Final Result [facility] Inf. Diseases Diag. Lab [address] [facility] [place] [address], [facility] [phone] from Last 3 Months or Most Recently Relevant to Health Maintenance Insurance BCBS OUT OF STATE BCBS OUT OF STATE BCBS OUT OF STATE Care Teams Tattoo Artist Relationship Specialty Start Date End Date Leo Joyce MD PCP - Ophthalmology 09/08/06 [facility] [address] [place] [address] PCP - General 07/09/17 Giuliano Rajan, TELEMARKETING SUPERVISOR DISTILLATION OPERATOR Nurse Practitioner Nurse Practitioner 04/01/17 Hans Davila MD [address] [place] [address] Assigned OBGYN Provider 03/12/20 Servando Brandt DO [address] [place] [address] Assigned PCP 08/22/21 Jarek Landin OD [address] [place] [address] Assigned Surgical Provider 07/04/23
--- OUTSIDE RECORDS SUMMARY | 2024-10-09 20:02 | XMS_ITS | Clinical Summary ---
Author Organization [facility] Address [address] [place] [address] Care Team Providers Care Cheese Supervisor Name Role Phone No Primary/Referring, Phy Primary Care Provider Unavailable Source Comments You are receiving this document as you are listed as the primary care provider,follow-up provider, or the patient has been referred to you for consultation.This is in compliance with the Medicare and[facility] EHR Incentive Program,which states Providers who transition their patient to another setting of careor provider of care or refers their patient to another provider of care shouldprovide summary care record for each transition of care or referral. [facility] Allergies No known active allergies Medications DULoxetine (CYMBALTA) 60 MG capsule Take 60 mg by mouth daily. Active Active Problems No known active problems Social History Tobacco Use Types Packs/Day Years Used Date Smoking Tobacco: Never Assessed Comments Unknown Sex and Gender Information Value Date Recorded Sex Assigned at Not on file Legal Sex Female 7:38 PM CDT Gender Identity Not on file Sexual Orientation Not on file Last Filed Vital Signs Vital Sign Reading Time Taken Comments Blood Pressure 98/67 08/24/2016 10:40 AM CDT Pulse 114 08/24/2016 10:40 AM CDT Temperature 37.3 C (99.1 F) 08/24/2016 10:40 AM CDT Respiratory Rate 14 08/24/2016 10:40 AM CDT Oxygen Saturation 98% 08/24/2016 10:40 AM CDT Inhaled Oxygen Concentration - - Weight 63.5 kg (140 lb) 08/24/2016 10:40 AM CDT Height - - Body Mass Index - - Plan of Treatment Health Maintenance Due Date Last Done Comments Cervical Cancer Screening Due 1997 Hep C Screening (Preventive Services) 1997 HIV Screening (Preventive Services) 2013 Adult Preventive Visit 2015 DTaP/Tdap/Td Vaccine (1 - Tdap) 2016 HepB Vaccine (1) 2016 COVID-19 Vaccine (1 - 2023-2 5 season) 2023 Influenza Vaccine (Season Ended) 2024 Zoster/Shingles Vaccine (1 of 2) 2047 HPV Vaccine Aged Out No longer eligi ble based on patient's age to complete this topic HepA Vaccine Aged Out No longer eligi ble based on patient's age to complete this topic Hib Vaccine Aged Out No longer eligi ble based on patient's age to complete this topic IPV (Polio) Vaccine Aged Out No longe r eligible based on patient's age to complete this topic MCV4 Vaccine Aged Out No longer eligi ble based on patient's age to complete this topic Meningococcal B Vaccine Aged Out No l onger eligible based on patient's age to complete this topic Pneumococcal Vaccine Aged Out No long er eligible based on patient's age to complete this topic Insurance [facility] Care Teams Cheese Supervisor Relationship Specialty Start Date End Date No Primary/Referring, Phy PCP - General 08/24/16
--- OUTSIDE RECORDS SUMMARY | 2024-10-09 20:02 | XMS_ITS | Encounter Summary ---
Author Organization [facility] Address [address] [place] [address] Care Team Providers Care Body Sander Name Role Phone Leo Joyce MD Unavailable [phone] Giuliano Rajan AIR DEFENSE ARTILLERY SENIOR SERGEANT PSYCH ARNP Unavailable [facility] Primary Care Provider Hans Davila MD Unavailable [phone] Servando Brandt DO Unavailable [phone] Sue Atkins AIR DEFENSE ARTILLERY SENIOR SERGEANT PSYCH ARNP Unavaila ble Jarek Landin OD Unavailable [phone] Encounter Details Date Type Department Care Team (Late st Contact Info) Description 02/07/2024 MyC Medical Advice [facility] [address] [place] [address] Hans Davila MD [address] [place], [place] [address] Social History Tobacco Use Types Packs/Day Years [...] AM CDT Legal Sex Female 4:22 AM SUPERVISOR WHEEL SHOP Gender Identity Female 02/15/2021 10:05 AM CDT Sexual Orientation Straight 02/15/2021 10 :05 AM CDT documented as of this encounter Plan of Treatment Upcoming Encounters Date Type Department Care Team (Late st Contact Info) Description 10/19/2024 3:30 PM CDT Virtual Visit [facility] [id number] [place] [address] [place] [phone] Hans Davila MD [address] [place], [place] [address] Linda Humphrey [place] [id number] [place] [address] 11/04/2024 3:00 PM CDT Office Visit [facility] Mental Health & Addiction [address] [phone] Sharmaine Fiore NP [address] [place] [address] documented as of this encounter Visit Diagnoses Not on filedocumented in this encounter Additional Health Concerns Assessment Noted Time PHQ-9 Depression Total Score: 14 023 12:03 PM CDT documented as of this encounter Care Teams Body Sander Relationship Specialty Start Date End Date Leo Joyce MD PCP - Ophthalmology 09/08/06 [facility] Md Hinton MD [address] [place] [id number] PCP - General 07/09/17 Giuliano Rajan, AIR DEFENSE ARTILLERY SENIOR SERGEANT PSYCH ARNP Nurse Practitioner Nurse Practitioner 04/01/17 Hans Davila MD [address] [place] [address] Assigned OBGYN Provider 03/12/20 Servando Brandt DO [address] [place], [place] [phone] Assigned PCP 08/22/21 Sue Atkins APRN PSYCH ARNP [address] [facility] [address] Assigned Neuroscience Provider 08/03/22 02/10/24 Jarek Landin OD [address] [place] [address] Assigned Surgical Provider 07/04/23 documented as of this encounter
--- OUTSIDE RECORDS SUMMARY | 2024-10-09 20:02 | XMS_ITS | Clinical Summary ---
Author Organization [facility] Address [address] [place] [address] Care Team Providers Care Forepart Reducer Name Role Phone Unavailable Primary Care Provider Unavailabl e Allergies Active Allergy Reactions Criticality Noted Date Comments Cats (Fur, Dander, Saliva) 8 Latex Rash 08/25/2012 Mold Extracts 06/25/2007 Pollen Extracts 06/25/2007 maple trees Medications sodium chloride 0.9% 0.9 % irrigation Irrigate 20 cc each nostril QID X 2 month supply 28161 mL 3 3 Active azelastine 137 mcg/actuation nasal (ASTELIN) 137 mcg nasal spray 1 puff each nostril Q Day X 3 month supply 1 Bottle 2 3 Active cetirizine (ZYRTEC) 10 mg tablet Take 1 tablet by mouth once daily. 0 3 Active adapalene (DIFFERIN) 0.1 % gel Apply topically to affected area(s) at bedtime. 1 Tube 0 3 Active ibuprofen (ADVIL; MOTRIN) 600 mg tablet 0 5 Active azithromycin (ZITHROMAX) 250 mg tabletIndication s:Cough Take 500 mg (2 tabs) by mouth on day 1, then 250 mg (1 tab) daily for days 2-5. 6 tablet 0 6 Active clindamycin 1% (CLEOCIN-T) 1 % gelIndications:A cne, unspecified acne type Apply topically to affected area(s) 2 times daily. 60 g 2 07/25/201 6 Active Active Problems Problem Noted Date Diagnosed Date Recurrent sinus infections 04/05/2013 Immunizations Immunization Administration Dates Next Due DTaP 05/28/2002, 9,1997,08/12,1997 HIB PRP-T (ActHIB,Hiberix) 07/12/1998,,1997,06/17 Hepatitis A (Peds) 12/31/2006,06/23/2006 Hepatitis B (Peds) 1997,1997, 998 Human Papilloma Virus Vaccine 02/14/2010, 010,08/08/2009 Inactivated Polio Vaccine 05/28/2002,,1997,06/17 MENINGOCOCCAL VACCINE 2 VIAL [id number] (MENVEO) 11/04/2014 MMR 05/28/2002,07/12/1998 Meningococcal Vaccine (Menactra) 08/08/2009 Rabies Vaccine 11/20/2007, 8,10/28/2007,10/23,10/21/2007 Tdap 10/21/2007 Varicella Vaccine 10/21/2007,01/12/1999 Family History Medical History Relation Name Comments Good Health Father Good Health Mother Relation Name Status Comments Father Mother Social History Tobacco Use Types Packs/Day Years Used Date Smoking Tobacco: Never Smokeless Tobacco: Never Tobacco Cessation:Counseling Given: Yes Alcohol Use Standard Drinks/Week Comments No 0 (1 standard drink = 0.6 oz pur e alcohol) Comments No Sex and Gender Information Value Date Recorded Sex Assigned at Not on file Legal Sex Female 5:52 AM CONTRACT PROGRAMMER Gender Identity Not on file Sexual Orientation Not on file Obstetrics History Last Filed Vital Signs Vital Sign Reading Time Taken Comments Blood Pressure 104/66 09/11/2015 4:00 PM CDT Pulse 86 09/11/2015 4:00 PM CDT Temperature 37.6 C (99.7 F) 06/07/2014 12:01 PM CONTRACT PROGRAMMER Respiratory Rate 12 08/25/2012 3:46 PM CDT Oxygen Saturation 97% 09/11/2015 4:00 PM CDT Inhaled Oxygen Concentration - - Weight 64.1 kg (141 lb 6.4 oz) 09/11/2015 4:00 P M CDT Height 162.2 cm (5' 3.86) 09/11/2015 4:00 PM CD T Body Mass Index 24.38 09/11/2015 4:00 PM CDT Plan of Treatment Health Maintenance Due Date Last Done Comments HIV for age 15-65 2012 Hepatitis C screening for ag e 18-79 2015 Depression screening for age 12+ 07/30/2016 07/31/2015 BMI (ht and wt on same day) for age 18+ 09/10/2016 09/11/2015, 07/31/2015 Tetanus booster 10/20/2017 10/21/2007 Pap test for age 21-65 2018 COVID-19 vaccine series (2023- season) 2023 Influenza Vaccine (Season Ended) 2024 Hepatitis B series for 19+ Completed 10/17, 1997, 1997 Tdap Completed 10/21/2007 Pneumococcal series for age 6-49 Aged Out No longer eligible b ased on patient's age to complete this topic Insurance [facility]
--- OUTSIDE RECORDS SUMMARY | 2024-10-09 20:02 | XMS_ITS | Encounter Summary ---
Author Organization [facility] Address [address] [place] [address] Care Team Providers Care Showroom Salesperson Name Role Phone Leo Joyce MD Unavailable [phone] Giuliano Rajan APRN WORK ORDER DETAILER Unavailable [facility] Primary Care Provider Giuliano Rajan CNC ROUTER OPERATOR WORK ORDER DETAILER Unavailable [phone] Hans Davila MD Unavailable Rocio Atkins OD Unavailable Servando Brandt DO Unavailable [phone] Sue Atkins CNC ROUTER OPERATOR WORK ORDER DETAILER Unavaila ble Jarek Landin OD Unavailable [phone] Reason for Visit * Reason Onset Date Comments Refill Request 07/06/2021 desogestrel-ethi nyl estradiol (APRI) 0.15-30 MG-MCG tablet Encounter Details Date Type Department Care Team (Late st Contact Info) Description 07/06/2021 [facility] [place] [address] [place] [address] Hans Davila MD [address] [place] [address] Refill Request (desogestrel-ethinyl estradiol (APRI) 0.15-30 MG-MCG tablet) Social History Tobacco Use Types Packs/Day Years Used Date Smoking Tobacco: Never Smokeless Tobacco: Never Alcohol Use Standard Drinks/Week Comments Yes 0 (1 standard drink = 0.6 oz pur e alcohol) PHQ-2 Answer Date Recorded PHQ-2 Score 2 04/19/2021 Comments No Sex and Gender Information Value Date Recorded Sex Assigned at Female 02/15/2021 10:05 AM CDT Legal Sex Female 4:22 AM DAIRY CATTLE FARM WORKER Gender Identity Female 02/15/2021 10:05 AM CDT Sexual Orientation Straight 02/15/2021 10 :05 AM CDT documented as of this encounter Miscellaneous Notes * Telephone Encounter - Haley Henriquez RN - 07/06/2021 2:05 PM CDT Prescription approved per [facility] Refill Protocol. Haley Henriquez RN documented in this encounter Plan of Treatment Upcoming Encounters Date Type Department Care Team (Late st Contact Info) Description 10/19/2024 3:30 PM CDT Virtual Visit [address] [phone] Hans Davila MD [address] [place] [address] Linda Humphrey MD [address] [place] [address] 11/04/2024 3:00 PM CDT Office Visit [facility] Mental Health & Addiction [address] [phone] Sharmaine Fiore NP [address] [phone] documented as of this encounter Visit Diagnoses Diagnosis Breakthrough bleeding on OCPs Metrorrhagia documented in this encounter Additional Health Concerns Assessment Noted Time PHQ-9 Depression Total Score: 16 04/06/ 021 7:02 AM DAIRY CATTLE FARM WORKER documented as of this encounter Care Teams Showroom Salesperson Relationship Specialty Start Date End Date Leo Joyce MD PCP - Ophthalmology 09/08/06 [facility] [address] [place] [address] PCP - General 07/09/17 Giuliano Rajan APRN WORK ORDER DETAILER Nurse Practitioner Nurse Practitioner 04/01/17 Giuliano Rajan APRN WORK ORDER DETAILER [address] [place] [address] Assigned Behavioral Health Provider 02/11/20 04/26/22 Hans Davila MD [address] [place] [address] Assigned OBGYN Provider 03/12/20 Rocio Atkins OD [address] [facility] [address] Assigned Surgical Provider 05/06/21 11/01/22 Servando Brandt DO [address] [place] [address] Assigned PCP 08/22/21 Sue Atkins APRN WORK ORDER DETAILER [address] [place], [place] [address], [place] [address] Assigned Neuroscience Provider 08/03/22 02/10/24 Jarek Landin OD [address] [facility] [place] [address] Assigned Surgical Provider 07/04/23 documented as of this encounter
--- OUTSIDE RECORDS SUMMARY | 2024-10-09 20:02 | XMS_ITS | Encounter Summary ---
Author Organization [facility] Address [address] [place] [address] Care Team Providers Care Director Airport Operations Name Role Phone Leo Joyce MD Unavailable [phone] Giuliano Rajan APRN LIVESTOCK SLAUGHTERER Unavailable [facility] FARRAH [place] Primary Care Provider Hans Davila MD Unavailable [phone] Servando Brandt DO Unavailable [phone] Jarek Landin OD Unavailable [phone] Encounter Details Date Type Department Care Team (Late st Contact Info) Description 10/05/2024 MyC Medical Advice [facility] Women's [address] [place] [address] Hans Davila MD [address] [place] [address] Social History Tobacco Use Types Packs/Day Years [...] AM CDT Legal Sex 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 Gender Identity Female 02/15/2021 10:05 AM CDT Sexual Orientation Straight 02/15/2021 10 :05 AM CDT documented as of this encounter Plan of Treatment Upcoming Encounters Date Type Department Care Team (Late st Contact Info) Description 10/19/2024 3:30 PM CDT Virtual Visit [facility] [address] [place] [phone] Hans Davila MD [address] [place] [address] [place] [address] [place] [address] 11/04/2024 3:00 PM CDT Office Visit [facility] Mental Health & Addiction [address] [phone] Sharmaine Fiore NP [address] [address] documented as of this encounter Visit Diagnoses Not on filedocumented in this encounter Additional Health Concerns Assessment Noted Time PHQ-9 Depression Total Score: 8 07/28/19 25 1:34 PM CDT documented as of this encounter Care Teams Director Airport Operations Relationship Specialty Start Date End Date Leo Joyce MD PCP - Ophthalmology 09/08/06 [facility] Hinton MD [address] [place] [address] 477065 PCP - General 07/09/17 Giuliano Rajan APRN LIVESTOCK SLAUGHTERER Nurse Practitioner Nurse Practitioner 04/01/17 Hans Davila MD [address] [place] [address] Assigned OBGYN Provider 03/12/20 Servando Brandt DO [address] [facility] [place] [address] Assigned PCP 08/22/21 Jarek Landin OD [address] [facility] [place] [address] Assigned Surgical Provider 07/04/23 documented as of this encounter
--- OUTSIDE RECORDS SUMMARY | 2024-10-09 20:02 | XMS_ITS | Encounter Summary ---
Author Organization [facility] Address [address] [place] [address] Care Team Providers Care Accounting Instructor Name Role Phone Leo Joyce MD Unavailable [phone] Giuliano Rajan APRN BED LASTER Unavailable [facility] Primary Care Provider Hans Davila MD Unavailable Rocio Atkins OD Unavailable Servando Brandt DO Unavailable [phone] Sue Atkins RIVET HOLE MACHINE OPERATOR BED LASTER Unavaila ble Jarek Landin OD Unavailable Reason for Visit * Reason Onset Date Comments Medication Request 10/11/2022 Encounter Details Date Type Department Care Team (Late st Contact Info) Description 10/11/2022 MyC Medical Advice [facility] Women's [facility] [address] [place] [address] Hans Davila MD [address] [place], [place] 38[address] Medication Request Social History Tobacco Use Types Packs/Day Years Used Date Smoking Tobacco: Never Smokeless Tobacco: Never Alcohol Use Standard Drinks/Week Comments Yes 0 (1 standard drink = 0.6 oz pur e alcohol) one glass a week PHQ-2 Answer Date Recorded PHQ-2 Score 3 08/28/2022 Comments No Sex and Gender Information Value Date Recorded Sex Assigned at Female 02/15/2021 10:05 AM CDT 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 Patient would like to switch back to combination OCP's. CHELSEY 08/28/22 Tri Galindo RN documented in this encounter Plan of Treatment Upcoming Encounters Date Type Department Care Team (Late st Contact Info) Description 10/19/2024 3:30 PM CDT Virtual Visit [address] [phone] Hans Davila MD [address] [place], [place] [address] Linda Humphrey MD [address] [place] [address] [phone] 11/04/2024 3:00 PM CDT Office Visit [facility] Mental Health & Addiction [address] [phone] Sharmaine Fiore NP [address] [phone] documented as of this encounter Visit Diagnoses Not on filedocumented in this encounter Additional Health Concerns Assessment Noted Time PHQ-9 Depression Total Score: 14 023 12:03 PM CDT documented as of this encounter Care Teams Accounting Instructor Relationship Specialty Start Date End Date Leo Joyce MD PCP - Ophthalmology 09/08/06 [facility] [place], [address] [place] [id number] PCP - General 07/09/17 Giuliano Rajan APRN BED LASTER Nurse Practitioner Nurse Practitioner 04/01/17 Hans Davila MD [address] [place] [address] Assigned OBGYN Provider 03/12/20 Rocio Atkins OD [address] [facility] [place] [address] Assigned Surgical Provider 05/06/21 11/01/22 Servando Brandt DO [address] [place] [address] Assigned PCP 08/22/21 Sue Atkins APRN BED LASTER [address] [facility] [address] Assigned Neuroscience Provider 08/03/22 02/10/24 Jarek Landin OD [address] [facility] [place] [address] Assigned Surgical Provider 07/04/23 documented as of this encounter
--- OUTSIDE RECORDS SUMMARY | 2024-10-09 20:03 | XMS_ITS | Encounter Summary ---
Author Organization [facility] Address [address] [place] [address] Care Team Providers Care Retail Cashier Name Role Phone Leo Joyce MD Unavailable [phone] Giuliano Rajan ALLIED HEALTH TEACHER STUDENT MINISTRY PASTOR Unavailable [phone] [facility] Primary Care Provider Giuliano Rajan ALLIED HEALTH TEACHER STUDENT MINISTRY PASTOR Unavailable [phone] Hans Davila MD Unavailable [phone] Rocio Atkins OD Unavailable Servando Brandt DO Unavailable [phone] Sue Atkins ALLIED HEALTH TEACHER STUDENT MINISTRY PASTOR Unavaila ble Jarek Landin OD Unavailable Encounter Details Date Type Department Care Team (Late st Contact Info) Description 02/27/2021 MyC Medical Advice [facility] Mental Health & Addiction [address] [address] [phone] Traci Luo Social History Tobacco Use Types Packs/Day Years Used Date Smoking Tobacco: Never Smokeless Tobacco: Never Alcohol Use Standard Drinks/Week Comments Yes 0 (1 standard drink = 0.6 oz pur e alcohol) PHQ-2 Answer Date Recorded PHQ-2 Total Score (Adult) - Positive if 3 or more points; Administer PHQ-9 if positive 2 02/15/2021 Comments No Sex and Gender Information Value Date Recorded Sex Assigned at Female 02/15/2021 10:05 AM CDT Legal Sex 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 Gender Identity Female 02/15/2021 10:05 AM CDT Sexual Orientation Straight 02/15/2021 10 :05 AM CDT documented as of this encounter Plan of Treatment Upcoming Encounters Date Type Department Care Team (Late st Contact Info) Description 10/19/2024 3:30 PM CDT Virtual Visit [facility] [address] [place] [address] [place] [phone] Hans Davila MD [address] [place] [address] Linda [place]rey [place] [phone] [place] [address]14339 11/04/2024 3:00 PM CDT Office Visit [facility] Mental Health & Addiction [address] [phone] Sharmaine Fiore NP [address] [place] [address] documented as of this encounter Visit Diagnoses Not on filedocumented in this encounter Additional Health Concerns Assessment Noted Time PHQ-9 Depression Total Score: 10 021 7:03 AM CDT documented as of this encounter Care Teams Retail Cashier Relationship Specialty Start Date End Date Leo Joyce MD PCP - Ophthalmology 09/08/06 [facility] Hinton MD [address] [place] [address] [id number] PCP - General 07/09/17 Giuliano Rajan, ALLIED HEALTH TEACHER STUDENT MINISTRY PASTOR Nurse Practitioner Nurse Practitioner 04/01/17 Giuliano Rajan APRN STUDENT MINISTRY PASTOR [address] [place] [address] Assigned Behavioral Health Provider 02/11/20 04/26/22 Hans Davila MD [address] [place] [address] Assigned OBGYN Provider 03/12/20 Rocio Atkins, OD [address] [facility] [place] [place] [address] Assigned Surgical Provider 05/06/21 11/01/22 Servando Brandt DO 5200 [place] [address] Assigned PCP 08/22/21 Sue Atkins APRN STUDENT MINISTRY PASTOR [address] [facility] [address] Assigned Neuroscience Provider 08/03/22 02/10/24 Jarek Landin, OD [address] [place] [address] Assigned Surgical Provider 07/04/23 documented as of this encounter
--- OUTSIDE RECORDS SUMMARY | 2024-10-09 20:03 | XMS_ITS | Encounter Summary ---
Author Organization [facility] Address [address] [place] [address] Care Team Providers Care Policy Cancellation Clerk Name Role Phone Leo Joyce MD Unavailable Giuliano Rajan PANTS MAKER ASSISTANT PROFESSOR OF BUSINESS Unavailable [phone] [facility] Primary Care Provider Giuliano Rajan PANTS MAKER ASSISTANT PROFESSOR OF BUSINESS Unavailable Hans Davila MD Unavailable Rocio Atkins OD Unavailable Servando Brandt DO Unavailable [phone] Sue Atkins PANTS MAKER ASSISTANT PROFESSOR OF BUSINESS Unavaila ble Jarek Landin OD Unavailable Encounter Details Date Type Department Care Team (Late st Contact Info) Description 03/28/2021 MyC Medical Advice [facility] [address] [facility] [address] [place] [address] Hans Davila MD [facility] [place] [address] RODRICK (generalized anxiety disorder) Social History Tobacco Use Types Packs/Day Years [...] AM CDT Legal Sex 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 Aura Vo RN TER APPRENTICE * Telephone Encounter - Aura Vo RN - 03/28/2021 10:09 AM PAINTER APPRENTICE Please see my chart message regarding refilling med's. Aura Vo RN TER APPRENTICE documented in this encounter Plan of Treatment Upcoming Encounters Date Type Department Care Team (Late st Contact Info) Description 10/19/2024 3:30 PM CDT Virtual Visit [address] [phone] Hans Davila MD [facility] [place] [address] Linda Humphrey MD [address] [place] [address] 11/04/2024 3:00 PM CDT Office Visit [facility] Mental Health & Addiction [address] [place] [phone] Sharmaine Fiore NP [address] [place] [address] documented as of this encounter Visit Diagnoses Diagnosis RODRICK (generalized anxiety disorder) Generalized anxiety disorder documented in this encounter Additional Health Concerns Assessment Noted Time PHQ-9 Depression Total Score: 10 021 7:03 AM CDT documented as of this encounter Care Teams Policy Cancellation Clerk Relationship Specialty Start Date End Date Leo Joyce MD PCP - Ophthalmology 09/08/06 [facility] [address] [place] [id number] PCP - General 07/09/17 Giuliano Rajan APRN ASSISTANT PROFESSOR OF BUSINESS Nurse Practitioner Nurse Practitioner 04/01/17 Giuliano Rajan PANTS MAKER ASSISTANT PROFESSOR OF BUSINESS [address] [place] [address] Assigned Behavioral Health Provider 02/11/20 04/26/22 Hans Davila MD [address] [place] [address] Assigned OBGYN Provider 03/12/20 Rocio Atkins OD [address] [place] [address] Assigned Surgical Provider 05/06/21 11/01/22 Servando Brandt DO 5200 [place] [address] Assigned PCP 08/22/21 Sue Atkins APRN ASSISTANT PROFESSOR OF BUSINESS [address] [facility] [id number] [place] [address] Assigned Neuroscience Provider 08/03/22 02/10/24 Jarek Landin OD [address] [facility] [place] [address] Assigned Surgical Provider 07/04/23 documented as of this encounter
[2024-10-09 20:17] VITALS: BP 122/82; PULSE 83; RESP 18; TEMP 36.8; O2SAT 98; BMI 25.0
--- NOTE | 2024-10-09 20:42 | ED_ITS ---
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 She states she was working thin out CT when it accidentally scratched her thenar eminence with its tooth. She states there is no function to her scan and her hand caught the cat's tooth when he was biting for something else. The cat is up-to-date on vaccinations according to the owners and they will bring the can not back in 10 days to make sure is showing no signs of rabies. She has no other concerns at this time Related Data Home Medications ?Medication ?Instructions ?Recorded ?Confirmed norgestimate 0.25 mg-ethinyl 1 tab PO DAILY 04/03/24 1 06/04/23 estradiol 0.035 mg tablet (Evie) sertraline 100 mg tablet 200 mg PO DAILY 04/03/24 Allergies Allergy/AdvReac Type Severity Reaction Status Date / Time latex AdvReac topical Verified 04/03/24 20:08 hives Review of Systems Status of ROS: Reports: 10 or more systems reviewed and unremarkable except as noted in History and below [facility] Medical History (Updated 10/09/24 @ 20:47 by Beto Monte DO) No significant past medical history Surgical History No significant past surgical history Social History Smoking Status: Never smoker Do you use any of these nicotine containing products: None Second hand tobacco smoke exposure: No How often do you have a drink containing alcohol: never AUDIT-C Alcohol total score: 0 Non-prescribed substance use: denies use service: No Exam Narrative: Exam Narrative: Const: Well-nourished, Well-developed, in no distress Eyes: PERRL, no conjunctival injection, and symmetrical lids HENT: Atraumatic external nose and ears. Moist mucous membranes. MSK:Extremities w/o deformity, Normal Active ROM Skin: Warm, Dry. 3 cm superficial laceration starting on the volar aspect of the thenar eminence and wrapping down the with the wrist. No signs of puncture wounds. Is relatively superficial and is not amendable to closure at this time. Neuro: Normal Muscle tone, No focal neurological deficits. Psych: Awake, Alert, & Oriented x3. Appropriate mood and affect. Const: Vital Signs, click to edit/add: Vital Signs - 24 hr 10/09/24 20:17 Temperature 98.2 F Pulse Rate [Right Pulse Oximeter] 83 Respiratory Rate 18 Blood Pressure [Le ft Upper Arm] 122/82 Pulse Oximetry 98 Oxygen Delivery Me thod Room Air Course Vital Signs Vital signs: Initial Vital Signs Temperature 98.2 F 10/09/24 20:17 Temperature Source Temporal Artery Scan 10/09/24 20:17 Pulse Rate 83 10/09/24 20:17 Respiratory Rate 18 10/09/24 20:17 Blood Pressure 122/82 10/09/24 20:17 Blood Pressure Mean 95 10/09/24 20:17 Blood Pressure Position Sitting 10/09/24 20:17 Pulse Oximetry 98 10/09/24 20:17 Oxygen Delivery Method Room Air 10/09/24 20:17 Vital Signs Temperature 98.2 F 10/09/24 20:17 Pulse Rate 83 10/09/24 20:17 Respiratory Rate 18 10/09/24 20:17 Blood Pressure 122/82 10/09/24 20:17 Pulse Oximetry 98 10/09/24 20:17 Oxygen Delivery Method Room Air 10/09/24 20:17 Temperature 98.2 F 10/09/24 20:17 Pulse Rate 83 10/09/24 20:17 Respiratory Rate 18 10/09/24 20:17 Blood Pressure 122/82 10/09/24 20:17 Pulse Oximetry 98 10/09/24 20:17 Oxygen Delivery Method Room Air 10/09/24 20:17 MDM - Animal Bite MDM Narrative Medical decision making narrative: Patient is a 29-year-old female presenting for a cat bite. The bite was more of a scratch along the cat's 2. There are no signs of puncture wounds. Not requiring any closure at this time is very superficial. I do not believe she needs a dose of IV antibiotics at this time. It could be debated will she be needs oral antibiotics but with everything I will just give her Augmentin. She is agreeable to this plan. She will be discharged. She was given return precautions for signs of flexor tenosynovitis. Augmentin prescribed through instymeds Discharge Plan Discharge Clinical Impression: Cat bite Qualifiers: Encounter type: initial encounter Qualified Code(s): W55.01XA - Bitten by cat, initial encounter Patient Disposition: Home, Self-Care Condition: Stable Instructions: Animal Bite (ED) Additional Instructions: Take antibiotics as directed. If the cat shows any signs of rabies return for your rabies vaccinations. If you develop any of the following signs called Kanavel's Signs it could be a sign of flexor tenosynovitis and is an emergency that you need to return to emergency department immediately for -Pain with passive extension (often the first sign seen) -Percussion tenderness (tenderness over entire length of flexor tendon sheath) -Uniform swelling (symmetric finger swelling along length of the tendon sheath) -Flexion posture (flexed posture of involved digit at rest to minimize pain) Prescriptions: No Action norgestimate-ethinyl estradiol [Evie] 0.25-35 mg-mcg tablet 1 tab PO DAILY sertraline 100 mg tablet 200 mg PO DAILY Follow Up/Referrals: Provider,Not a Local [Primary Care Provider, Family Practice] Stand Alone Forms: [employer] Info Instructions
== END 2024-10-09 20:56 | disposition home or self-care (01) ==
PROVIDERS: Emergency Provider Student in an Organized Health Care Education/Training Program
DX: S50.872A Other superficial bite of left forearm, initial encounter (principal); W55.01XA Bitten by cat, initial encounter
CPT/HCPCS: 99283